=== PATIENT | female | born 1950 | race Two or more races ===

== ENCOUNTER 2017-06-20 13:58 | Emergency (ER) | payer SELFPAY ==
[~2017-06-20] VITALS: Ht 165.1 cm; Wt 73.5 kg
[~2017-06-20 13:58] MED LIST: ACETAMINOPHEN-1 EAC1 ORAL; CYCLOBENZAPRINE10 MG ORAL
[2017-06-20 14:24] VITALS: BP 133/73
[2017-06-20] MEDS ORDERED: Tetanus/Diptheria/Pertussis Vaccine 0.5ml Syr IM ONE (14:30)
[2017-06-20] MEDS ORDERED: Bacitracin Oint UD TOPIC ONE (14:30)
--- NOTE | 2017-06-20 14:30 | Emergency Room Report ---
History of Present Illness General Chief Complaint: Animal Bite Source: Patient Present Illness HPI Patient presents with dog bites to the left forearm. This happened about 1 PM today. She complains about 4/10 pain in the area. There is no numbness in she has good strength in the arm. It was a domesticated dog. The patient has diabetes. She's on metformin but hasn't checked her blood sugar for several days. She has hypertension. She is right-handed and doesn't know when her last tetanus shot was. She denies somatic complaints, dysuria, polyuria change in bowels. Allergies: Coded Allergies: No Known Allergies (Verified , 05/27/11) Patient History Past Medical History: see triage record Social History: Denies: smoking, alcohol use, drug use Social History Narrative with daughter Last Menstrual Period: na Reviewed Nursing Documentation: PMH: Agreed, PSxH: Agreed Nursing Documentation-PMH Past Medical History Deferred: Patient Unconscious Past Medical History: No History, Except For Hx Hypertension: Yes Hx Diabetes: Yes Review of Systems All Other Systems: negative except mentioned in HPI Physical Exam Vital Signs Date Time Temp Pulse Resp B/P (MAP) Pulse Ox O2 Delivery O2 Flow Rate FiO2 06/20/17 14:14 97.9 86 18 133/73 99 Room Air Sp02 EP Interpretation: reviewed, normal General Appearance: well appearing, no apparent distress, GCS 15 Head: normocephalic, atraumatic Eyes: bilateral eye normal inspection, bilateral eye PERRL ENT: hearing grossly normal, normal voice, moist mucus membranes Neck: full range of motion, supple Respiratory: no respiratory distress, speaking full sentences Musculoskeletal: no calf tenderness Neurologic: alert, normal gait Psychiatric: mood/affect normal Skin: no rash, other - Puncture wound and swelling., abrasions - Other abrasions. Total area = 5 x 4 cm. Medical Decision Making Diagnostic Impression: Primary Impression: Dog bite Qualified Codes: W54.0XXA - Bitten by dog, initial encounter ER Course The patient presents post dog bite. She is diabetic. The wounds be cleaned. Antibiotics will be started. Also patient will get tetanus. She's complaining about pain will be given Tylenol. Wound irrigated and dressed. Sling applied by tech. Position excellent and neurovasc normal as checked by me. Patient stable for outpatient observation and treatment. Last Vital Signs Date Time Temp Pulse Resp B/P (MAP) Pulse Ox O2 Delivery O2 Flow Rate FiO2 06/20/17 15:05 97.9 88 20 135/80 100 Room Air Status: improved Disposition: HOME, SELF-CARE Condition: Improved Scripts Bacitracin (Bacitracin) 28.4 Gm Oint...g. 1 APPLIC TOPIC BID, #20 GM Prov: Ruben Rahman M.D. 06/20/17 Acetaminophen With Codeine (T#3) (TYLENOL #3 TAB*) Y Tab 1 TAB ORAL Q6HR Y for For Pain, #8 TAB Prov: Ruben Rahman M.D. 06/20/17 Amoxicillin/Potassium Clav 500-125 Tablet* (AUGMENTIN 500-125 TABLET*) 1 Each Tablet 1 TAB ORAL THREE TIMES A DAY, #21 TAB Prov: Ruben Rahman M.D. 06/20/17 Ruben Rahman M.D. Jun 20, 2017 14:30
[2017-06-20] MEDS ORDERED: AUGMENTIN 500-1 EACH ORAL (14:33)
[2017-06-20] MEDS ORDERED: BACITRACIN15 GM TOPIC (14:33)
[2017-06-20] MEDS ORDERED: ACETAMINOPHEN-1 EAC1 ORAL (14:33)
[2017-06-20 15:05] VITALS: BP 135/80
== END 2017-06-20 15:05 | disposition home or self-care (01) ==
LOC: EMR 14:50
DX: S51.832A Puncture wound without foreign body of left forearm, initial encounter (principal); S50.812A Abrasion of left forearm, initial encounter; W54.0XXA Bitten by dog, initial encounter; Y92.9 Unspecified place or not applicable; Z23 Encounter for immunization; I10 Essential (primary) hypertension; E11.9 Type 2 diabetes mellitus without complications
CPT/HCPCS: 90471; 90715; 99283

== ENCOUNTER 2018-09-18 21:50 | Emergency (ER) | payer MEDICAID, MEDICARE ==
[~2018-09-18] VITALS: Ht 172.7 cm; Wt 74.8 kg
[~2018-09-18 21:50] MED LIST changes: +AUGMENTIN 500-1 EACH ORAL; +BACITRACIN15 GM TOPIC
[2018-09-18] MEDS ORDERED: METFORMIN HCL500 M1 ORAL (22:00)
[2018-09-18] MEDS ORDERED: ENALAPRIL MALEA20 MG ORAL (22:00)
[2018-09-18] MEDS ORDERED: LEVOXYL88 MCG ORAL (22:00)
[2018-09-18] MEDS ORDERED: ASPIR 8181 MG ORAL (22:00)
[2018-09-18] MEDS ORDERED: PANTOPRAZOLE SO40 MG ORAL (22:00)
[2018-09-18] MEDS ORDERED: DONEPEZIL HCL5 M2 ORAL (22:00)
[2018-09-18 22:01] VITALS: BP 184/71
--- NOTE | 2018-09-18 22:02 | NUR ---
ED Nurse Note: Patient walked in to ER c/o cough. Per patient she was coughing 4 days, and today it got worse. AAOx4, BP is 185/89 other VSS at this time.
--- NOTE | 2018-09-18 22:09 | Emergency Room Report ---
History of Present Illness General Chief Complaint: Upper Respiratory Illness Source: Patient Present Illness [facility] This is a 68-year-old female with history of high blood pressure diabetes. She presents with chief complaint of cough. Started last night but worsened today. Cough is nonproductive in nature. No fever chills but no nausea no vomiting. She has back pain and upper dominant of pain secondary to coughing. Worse with inspiration. Worse with lying flat. Does have some congestion and runny nose. Allergies: Coded Allergies: No Known Allergies (Verified , 05/27/11) Patient History Past Medical History: see triage record, old chart reviewed, DM, HTN Past Surgical History: none Pertinent Family History: none Social History: Denies: smoking Last Menstrual Period: n/a Now: No Immunizations: other Reviewed Nursing Documentation: PMH: Agreed; PSxH: Agreed Nursing Documentation-PMH Past Medical History: No History, Except For Hx Hypertension: Yes Hx Diabetes: Yes Review of Systems Eye: Denies: eye pain, blurred vision ENT: Denies: ear pain, nose congestion, throat swelling Respiratory: Reports: cough, shortness of breath Cardiovascular: Denies: chest pain, palpitations Gastrointestinal: Denies: abdominal pain, diarrhea, nausea, vomiting Musculoskeletal: Denies: back pain, joint pain Skin: Denies: rash Neurological: Denies: headache, numbness Endocrine: Denies: increased thirst, increased urine Hematologic/Lymphatic: Denies: easy bruising All Other Systems: negative except mentioned in HPI Physical Exam Vital Signs Date Time Temp Pulse Resp B/P (MAP) Pulse Ox O2 Delivery O2 Flow Rate FiO2 09/18/18 21:53 98.2 72 18 184/71 94 Room Air vitals with high blood pressure Sp02 EP Interpretation: reviewed, normal General Appearance: well appearing, no apparent distress, alert Head: normocephalic, atraumatic Eyes: bilateral eye PERRL, bilateral eye EOMI ENT: hearing grossly normal, normal pharynx Neck: full range of motion, supple, no meningismus Respiratory: chest non-tender, lungs clear, normal breath sounds, other - Coughing with inspiration Cardiovascular #1: regular rate, rhythm, no murmur Gastrointestinal: normal bowel sounds, non tender, no mass, no organomegaly, no bruit, non-distended Musculoskeletal: back normal, gait/station normal, normal range of motion Psychiatric: mood/affect normal Skin: warm/dry Medical Decision Making Diagnostic Impression: Primary Impression: Upper respiratory infection Qualified Codes: J06.9 - Acute upper respiratory infection, unspecified ER Course She present with upper respiratory infection with cough. Better after breathing treatment. Family has generalized machine at home. No evidence of ACS, PE, dissection to name a few. We will charge home. Chest X-Ray Diagnostic Results Chest X-Ray Diagnostic Results : Chest X-Ray Ordered: Yes # of Views/Limited/Complete: 1 View Indication: Shortness of Breath EP Interpretation: Yes Interpretation: no consolidation, no effusion, no pneumothorax, no acute cardiopulmonary disease Impression: No acute disease Electronically Signed by: Fernando Givens MD Last Vital Signs Date Time Temp Pulse Resp B/P (MAP) Pulse Ox O2 Delivery O2 Flow Rate FiO2 09/18/18 22:01 72 18 Room Air 09/18/18 22:01 98.2 184/71 94 Status: improved Disposition: HOME, SELF-CARE Condition: Stable Scripts Albuterol Sulfate* (ALBUTEROL SULFATE MDI*) 8.5 Gm Hfa.aer.ad 2 PUFF INH Q4H PRN for cough/wheezing, #1 EA 0 Refills Prov: Fernando Givens MD 09/18/18 Patient Instructions: Upper Respiratory Infection, Adult Additional Instructions: Follow-up with your doctor in 7 days. Return if symptom worsen. Fernando Givens MD September 18, 2018 22:09
--- NOTE | 2018-09-18 22:12 | NUR ---
ED Nurse Note: RT by bed side, patient is getting treatment
[2018-09-18] MEDS ORDERED: Albuterol ud Inhalation HHN ONE (22:15)
[2018-09-18] MEDS ORDERED: ALBUTEROL SULF8.5 GM INH (23:03)
[2018-09-18 23:05] VITALS: BP 184/71
--- NOTE | 2018-09-18 23:06 | NUR ---
ED Nurse Note: Pt cleared by health care Provider for discharge. DC instructions/prescription was given and explained to pt and verbalized understanding of teachings. All medical deviecs such as ID band removed. Pt is AAO x4, ambulatory and left with all personal belongings.
--- NOTE | 2018-09-19 10:47 | Diagnostic Imaging Report ---
Indication: Dyspnea Comparison: 05/26/2011 A single view chest radiograph was obtained. Findings: Lung volumes are low. Bronchovascular markings are slightly prominent without overt CHF at this time. Heart size is also slightly accentuated. IMPRESSION: Limited evaluation. No acute disease
== END 2018-09-18 23:10 | disposition home or self-care (01) ==
LOC: EMR 22:10
DX: J06.9 Acute upper respiratory infection, unspecified (principal); I10 Essential (primary) hypertension; E11.9 Type 2 diabetes mellitus without complications
CPT/HCPCS: 71045; 94640; 94664; 99284